=== PATIENT | male | born 1975 | race Caucasian/White ===

== ENCOUNTER 2018-05-17 01:21 | Observation (INO) ==
[2018-05-17] MEDS ORDERED: 0.9 % Sodium Chloride 500 ML IVC ONE (01:30)
[2018-05-17] MEDS ORDERED: Aspirin 81 MG TAB.CHEW PO ONE (01:30)
[2018-05-17] MEDS ORDERED: Nitroglycerin 0.4 MG TAB.SUBL SL ONE (01:30)
--- NOTE | 2018-05-17 01:36 | Emergency Department Note ---
Disposition Clinical Impression: Chest pain Qualifiers: Chest pain type: unspecified Qualified Code(s): R07.9 - Chest pain, unspecified Hypertension Qualifiers: Hypertension type: essential hypertension Qualified Code(s): I10 - Essential ( primary) hypertension Disposition: Admitted As Inpatient Condition: Good Time of Disposition: 02:54 Chest Pain HPI - General Chief Complaint: ED Chest Pain Stated Complaint: chest pain Time Seen by Provider: 05/17/18 01:30 Source: family Mode of arrival: ambulatory Limitations: no limitations Vital Signs Reviewed: Yes Nursing Notes Reviewed: Yes - History of Present Illness HPI Narrative: 43-year-old male with a history of hypertension persists for evaluation of chest pain. Patient states he felt anterior chest pain which is nonexertional around 11:00 last night. Notes the pain has had intermittent episodes in his back. States that the pain has improved since arrival to the ED. Patient denies any vomiting. Patient did state that he had cold sweats. Denies any fevers or cough. No dyspnea. Denies any radiation symptoms his arms. Denies any history of heart attacks. Patient states that he does have a history of reflux however typically resolves with Zantac. Severity scale (1-10): 2 - Related Data Allergies Allergy/AdvReac Type Severity Reaction Status Date / Time No Known Allergies Allergy Verified 05/17/18 01:31 All systems ED: reviewed and negative except as stated. Constitutional: Denies: fever Cardiovascular: Reports: chest pain. Denies: palpitations Respiratory: Denies: cough, dyspnea Gastrointestinal: Denies: abdominal pain, nausea, vomiting Chest Pain PMH - Past Medical History Medical history: Reports: no medical history Psychiatric history: Reports: anxiety - Social History Smoking Status: Never smoker Alcohol use: Reports: none Drug use: Reports: none Physical Exam - General Limitations: no limitations General appearance: alert, in no apparent distress - Head Head exam: atraumatic, normocephalic, normal inspection - Eye Eye exam: Present: normal appearance, PERRL, EOMI - ENT ENT exam: normal exam, mucous membranes moist - Neck Neck exam: Present: normal inspection, trachea midline - Chest Chest inspection: Present: normal inspection, symmetric chest wall rise - Respiratory Respiratory exam: Present: normal lung sounds bilaterally. Absent: respiratory distress - Cardiovascular Cardiovascular exam: Present: regular rate, normal rhythm - Abdominal Exam Abdominal exam: Present: soft, Non-Tender - Extremities Exam Extremities exam: Present: normal inspection. Absent: pedal edema - Back Exam Back exam: Present: normal inspection - Neurological Exam Neurological exam: Present: alert, CN II-XII intact - Skin Skin exam: Present: warm, dry, intact, normal color Course Course Narrative: Patient will get basic cardiopulmonary screening evaluation. Aspirin, nitroglycerin, chest x-ray. Disposition likely admission given the patient's concerning history with no history of ACS in the past. - Reevaluation(s) Reevaluation #1: Patient's resting comfortably. Patient's pain has resolved. Patient states that the did not require any nitroglycerin. Patient's been resting comfortably. Stable vitals. Time: 02:25 Reevaluation #2: Patient seen and examined. Patient's resting comfortably. Time: 02:35 Vital Signs Temperature 97.6 F 05/17/18 01:27 Pulse Rate 93 05/17/18 01:27 Respiratory Rate 20 05/17/18 01:27 Blood Pressure 160/103 05/17/18 01:27 O2 Sat by Pulse Oximetry 96 05/17/18 01:27 Temperature 97.6 F 05/17/18 01:27 Pulse Rate 83 05/17/18 02:52 Respiratory Rate 22 05/17/18 02:52 Blood Pressure 129/95 05/17/18 02:52 O2 Sat by Pulse Oximetry 97 05/17/18 02:52 Oxygen Delivery Oxygen Delivery Room Air Chest Pain - MDM Narrative Medical decision making narrative: Patient presents for complaints of chest pain. Patient chest pain was moderately suspicious for ACS. Patient's pain resolved prior to administration of nitroglycerin. There is to be anterior pressure thought it was related to his reflux however did not resolve after Zantac. Patient does have risk factors for ACS. Patient also had cold sweats and diaphoresis. Patient has low suspicion or concern of a time pulmonary embolism. Patient's pulmonary embolism rock criteria negative. Patient symptoms and clinical exam and are consistent with aortic dissection. Patient has a negative troponin however given the onset of symptoms patient will likely need further evaluation to rule out ACS. - Lab Data Lab results reviewed: Yes I reviewed the patient's lab results. Result diagrams: 05/17/18 01:30 05/17/18 01:30 Lab Results 05/17/18 05/17/18 05/17/18 Range/Units 01:30 01:30 01:30 WBC (4.3-11.1) K/mcL RBC (4.19-5.50) M/mcL Hgb (12.9-16.9) g/dL Hct (37.5-50.1) % MCV (83.0-100.0) fL MCH (28.0-33.3) pg MCHC (31.6-35.5) g/dL RDW (11.5-14.5) % Plt Count (140-400) K/mcL MPV (9.4-12.4) fL Immature Gran % (0-4) % Seg Neutrophils % % Lymphocytes % % Monocytes % % Eosinophils % % Basophils % % Neutrophils # (1.6-8.9) K/mcL Lymphocytes # (0.6-4.6) K/mcL Monocytes # (0.0-1.3) K/mcL Eosinophils # (0.0-0.6) K/mcL Basophils # (0.0-0.2) K/mcL PT 11.6 (9.4-12.1) Seconds INR 1.0 APTT 28.8 (26.0-36.0) Seconds Sodium (136-145) mEq/L Potassium (3.5-5.1) mEq/L Chloride (98-107) mEq/L Carbon Dioxide (23-29) mEq/L BUN (6-20) mg/dL Creatinine (0.70-1.30) mg/dL Est GFR ( Amer) (> 60) Est GFR (Non-Af Amer) (> 60) BUN/Creatinine Ratio (6-26) Glucose (70-105) mg/dL Calculated Osmolality (280-300) Calcium (8.6-10.3) mg/dL Troponin I (< 0.04) ng/mL B-Natriuretic Peptide 19 (Less than 100) pg/mL Lipase 50 (11-82) Units/L 05/17/18 05/17/18 Range/Units 01:30 01:30 WBC 9.1 (4.3-11.1) K/mcL RBC 5.43 (4.19-5.50) M/mcL Hgb 16.3 (12.9-16.9) g/dL Hct 47.7 (37.5-50.1) % MCV 87.8 (83.0-100.0) fL MCH 30.0 (28.0-33.3) pg MCHC 34.2 (31.6-35.5) g/dL RDW 12.7 (11.5-14.5) % Plt Count 317 (140-400) K/mcL MPV 9.0 L (9.4-12.4) fL Immature Gran % 0.8 (0-4) % Seg Neutrophils % 48.2 % Lymphocytes % 39.9 % Monocytes % 8.5 % Eosinophils % 2.2 % Basophils % 0.4 % Neutrophils # 4.4 (1.6-8.9) K/mcL Lymphocytes # 3.6 (0.6-4.6) K/mcL Monocytes # 0.8 (0.0-1.3) K/mcL Eosinophils # 0.2 (0.0-0.6) K/mcL Basophils # 0.0 (0.0-0.2) K/mcL PT (9.4-12.1) Seconds INR APTT (26.0-36.0) Seconds Sodium 137 (136-145) mEq/L Potassium 3.4 L (3.5-5.1) mEq/L Chloride 102 (98-107) mEq/L Carbon Dioxide 27 (23-29) mEq/L BUN 14 (6-20) mg/dL Creatinine 1.18 (0.70-1.30) mg/dL Est GFR ( Amer) > 60 (> 60) Est GFR (Non-Af Amer) > 60 (> 60) BUN/Creatinine Ratio 12 (6-26) Glucose 117 H (70-105) mg/dL Calculated Osmolality 286 (280-300) Calcium 9.8 (8.6-10.3) mg/dL Troponin I < 0.03 (< 0.04) ng/mL B-Natriuretic Peptide (Less than 100) pg/mL Lipase (11-82) Units/L - EKG Data EKG attestation: Yes I reviewed and interpreted this EKG. EKG shows normal: sinus rhythm Rate: normal Rhythm: NSR Vivian/QRS: normal Heart block present: 1st Degree Interpretation: no acute changes, nonspecific ST-T wave changes Heart Score - Score History: Moderately Suspicious EKG: Non Specific repolarisation Disturbance Age: Less than 45 Risk Factors: 1-2 risk factors Troponin: Less than normal limit HEART Score Total: 3 [email or web address] - Cristal Situation: Demographics Background: Presenting Complaint Assessment: Vital Signs, Course and respsone to treatment, Patient/Family Expectation Recommendation: Barrier(s) to disposition, Recommendation based on pending studies, treatments, or consults STrevor Report Given to: Dr. Gina Bee Repor Time: 02:54 Attestation Statement - Attestation Attestation: I examined this patient and my medical decision-making was reviewed with the Resident Physician. I agree with the documented findings, disposition and treatment plan as described except to the extent set forth below. Heart score is greater than 3, aspirin, no chest pain at this time. Plan to admit for serial cardiac biomarkers as well as possible cardiac consultation.
[2018-05-17 01:50] LABS: Basophils % 0.4 %; Eosinophils # 0.2 K/mcL (0.0-0.6); Eosinophils % 2.2 %; Hematocrit 47.7 % (37.5-50.1); Hemoglobin 16.3 g/dL (12.9-16.9); Immature Granulocytes % 0.8 % (0-4); Lymphocytes # 3.6 K/mcL (0.6-4.6); Lymphocytes % 39.9 %; Mean Corpuscular HGB Conc 34.2 g/dL (31.6-35.5); Mean Corpuscular Volume 87.8 fL (83.0-100.0); Monocytes # 0.8 K/mcL (0.0-1.3); Monocytes % 8.5 %; Neutrophils # 4.4 K/mcL (1.6-8.9); Platelet Count 317 K/mcL (140-400); Red Blood Count 5.43 M/mcL (4.19-5.50); Red Cell Distribution Width 12.7 % (11.5-14.5); Segmented Neutrophils % 48.2 %
[2018-05-17 01:58] LABS: Prothrombin Time 11.6 Seconds (9.4-12.1)
[2018-05-17 02:01] LABS: Activated Partial Thrombo Time 28.8 Seconds (26.0-36.0)
[2018-05-17 02:14] LABS: BUN/Creatinine Ratio 12 (6-26); Blood Urea Nitrogen 14 mg/dL (6-20); Calcium 9.8 mg/dL (8.6-10.3); Carbon Dioxide 27 mEq/L (23-29); Chloride 102 mEq/L (98-107); Glucose 117 mg/dL (70-105); Osmolality,Calculated 286 (280-300); Potassium 3.4 mEq/L (3.5-5.1); Sodium 137 mEq/L (136-145); Troponin I < 0.03 ng/mL (< 0.04); eGFR For Non-African Americans > 60 (> 60)
--- NOTE | 2018-05-17 03:19 | Internal Med History&Physical ---
Date of Encounter: 05/17/18 Time of Encounter: 03:19 Internal Medicine - H&P: HPI Chief complaint: CP Admitted From: Home History of present illness: Mr. Hill is a 43 year old male with a PMH of HTN, HLD, GERD, and anxiety who presents to the ED from home c/o intermittent non-exertional anterior chest pain radiating to his back for about 45 minutes last PM. The pain was described as a sharp burning sensation that "felt like indigestion" and made it hard for him to stand. Patient reports associated diaphoresis and acid reflux that did not improve after taking Zantac at home. The pain resolved spontaneously prior to ASA administration in the ED. Pain severity was 8/10 and is now 0/10. Patient states that the did not require any nitroglycerin. He reports one similar episode of chest pain at rest that resolved without treatment about 5 months ago. He denies fever, chills, palpitations, SOB, N/V/D, constipation, dysuria, leg edema, rash, or recent illness. He reports his father has CAD and received cardiac stents at the age of 60. 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 - Constitutional Constitutional: no anorexia, no chills, no fatigue, no fever(s), no lethargy, no weakness, no weight gain, no weight loss - EENT Eyes: no blurry vision, no diplopia Nose, mouth and throat: no sinus pain, no sore throat - Cardiovascular Cardiovascular ROS IM: chest pain, diaphoresis, no dyspnea, no dyspnea on exertion, no edema, no irregular heart rhythm, no lightheadedness, no orthopnea , no palpitations, no paroxysmal nocturnal dyspnea, no syncope - Respiratory Respiratory: no cough, no dyspnea on exertion, no wheezing, no chest congestion - Gastrointestinal Gastrointestinal: heartburn, no abdominal pain, no constipation, no diarrhea, no nausea, no vomiting - Genitourinary Genitourinary ROS male: no dysuria, no urinary frequency, no urinary urgency - Musculoskeletal Musculoskeletal ROS IM: back pain, no arthralgias, no limited range of motion, no numbness, no tingling - Integumentary Integumentary IM: no erythema, no rash, no skin ulcer - Neurological Neurological ROS: no abnormal gait, no confusion, no dizziness, no headache(s), no numbness, no tremor(s), no weakness - Psychiatric Psychiatric: anxiety, no depression - Endocrine Endocrine IM: no fatigue, no polydipsia, no polyphagia, no polyuria - Hematologic/Lymphatic Hematologic/Lymphatic: no easy bleeding, no easy bruising - Constitutional Vitals: Temp Pulse Resp BP Pulse Ox 97.6 F 83 22 129/95 97 05/17/18 01:27 05/17/18 02:52 05/17/18 02:52 05/17/18 02:52 05/17/18 02:52 General appearance: Present: cooperative, A&O X 3, pleasant, no acute distress, answers questions appropriately - Head Head exam: Present: atraumatic, normocephalic - Eye Eye exam: Present: EOMI, conjuntiva pink, sclera anicteric - ENT ENT exam: Present: mucous membranes moist, normal oropharynx - Neck Neck exam general surgery: Present: full ROM, lymphadenopathy, normal inspection , supple, trachea midline - Respiratory Respiratory exam: Present: CTAB. Absent: accessory muscle use, rales, rhonchi, wheezes - Cardiovascular Cardiovascular exam: Present: RRR, +S1, +S2. Absent: diastolic murmur, gallop, rubs, systolic murmur - GI/Abdominal GI/Abdominal exam: Present: normal bowel sounds, soft, no peritoneal signs. Absent: distended, guarding, tenderness - Extremities Exam Extremities exam: Present: normal capillary refill, normal inspection, warm, radial pulses palpable and symmetrical. Absent: calf tenderness, cyanotic, pedal edema - Back Exam Back exam: Present: normal inspection. Absent: paraspinal tenderness, tenderness - Neurological Exam Neurological exam: Present: CN II-XII intact, oriented X3, no focal deficits. Absent: pronater drift, facial droop, speech deficit - Psychiatric Psychiatric exam: Present: anxious, normal affect - Skin Skin exam: Present: dry, intact, normal color, warm Internal Med - H&P Results - Labs CBC & Chem 7: 05/17/18 01:30 05/17/18 01:30 - Pulse Oximetry Interpretation Digit-Finger O2 Sat by Pulse Oximetry: 97 (On room air) - EKG Data -: EKG Interpreted by Myself EKG shows normal: sinus rhythm (HR 78, WI interval 215 ms, 1st Degree AV block, nonspecific ST-T wave changes), axis, QRS complexes - EKG Data Prior EKG available for review: no - Impressions ITS Impressions Chest X-Ray 05/17/18 01:30 IMPRESSION: Low lung volume examination. Streaky opacities at the bases probably represent atelectasis. Otherwise no definite acute process. D/ / Phu Red MD / Phu Red MD Interpreting Provider: Phu Red MD - Assessment and plan (1) Chest pain, rule out acute myocardial infarction Current Visit: Yes Status: Acute Assessment and plan: Patient with HTN, HLD, and family h/o CAD presents c/o substernal CP at rest radiating to his back at rest. CXR revealed low lung volume examination with streaky opacities at the bases probably represent atelectasis. Otherwise no definite acute process. EKG shows 1st degree AV block, non-specific ST-T wave abnormalities Patient was given NTG in the ED Continue NTG prn CP Aspirin 325mg PO given in ED, continue ASA 81mg PO daily Lipid panel pending, start high intensity statin NPO after midnight Continue telemetry monitoring EDUARDA Risk Score is 1 (3 CAD risk factors: Hypertension, hypercholesterolemia, family history of CAD) HEART Score is 4 (moderately suspicious history, non-specific repolarization disturbance, > 3 CAD risk factors: Hypertension, hypercholesterolemia, family history of CAD) Initial troponin < 0.03. Trend serial troponins, if negative, will proceed with exercise stress test in AM Consider cardiology consult if stress test indicates signs of ischemia (2) Hypertension Current Visit: Yes Status: Acute Assessment and plan: Consider adding beta oscar s/p stress test Qualifiers: Hypertension type: essential hypertension Qualified Code(s): I10 - Essential (primary) hypertension (3) HLD (hyperlipidemia) Current Visit: No Status: Chronic Assessment and plan: Lipid panel pending, start high intensity statin Qualifiers: Hyperlipidemia type: unspecified Qualified Code(s): E78.5 - Hyperlipidemia , unspecified (4) GERD (gastroesophageal reflux disease) Current Visit: Yes Status: Chronic Assessment and plan: Patient takes Zantac at home Continue PPI Qualifiers: Esophagitis presence: esophagitis presence not specified Qualified Code(s) : K21.9 - Gastro-esophageal reflux disease without esophagitis (5) Hypokalemia Current Visit: Yes Status: Acute Assessment and plan: Supplemented K Mag level pending Continue monitoring (6) Anxiety Current Visit: Yes Status: Chronic Assessment and plan: TSH level pending Continue home meds: Buspirone (7) DVT prophylaxis Current Visit: Yes Status: Acute Assessment and plan: Heparin subQ TID - Time Spent With Patient Total time spent is greater than 50% in coordination of care (as documented) at patient's floor/unit and/or counseling patient:
[2018-05-17] MEDS ORDERED: Acetaminophen 325 MG TABLET PO PRN (03:29)
[2018-05-17] MEDS ORDERED: Naloxone 0.4 MG/ML INJ IVP PRN (03:29)
[2018-05-17] MEDS ORDERED: Ondansetron 4 MG/2 ML VIAL IVP PRN (03:29)
[2018-05-17] MEDS ORDERED: Nitroglycerin 0.4 MG TAB.SUBL SL PRN (03:29)
[2018-05-17 05:57] LABS: Chol/HDL Ratio 4.6 (0-4.9); Cholesterol 183 mg/dL (< 200); HDL Cholesterol 40 mg/dL (40-59); LDL Cholesterol,Calculated 88 mg/dL (0-99); Magnesium 2.1 mg/dL (1.6-2.6); Triglycerides 276 mg/dL (< 150)
[2018-05-17] MEDS ORDERED: *HR* Heparin 5,000 UNIT/ML VIAL SQ SCH (06:00)
[2018-05-17 06:10] LABS: Thyroid Stimulating Hormone 1.535 mcIU/mL (0.340-5.600)
[2018-05-17] MEDS ORDERED: Pantoprazole 40 MG VIAL IVP SCH (06:30)
[2018-05-17] MEDS ORDERED: Aspirin 81 MG TAB.CHEW PO SCH (09:00)
--- NOTE | 2018-05-17 11:48 | Discharge Summary ---
- NOTES TO OUTPATIENT PROVIDER Notes to Outpatient Provider: f/u with PCP within 1-2 weeks. Date of Encounter: 05/17/18 Time of Encounter: 11:46 - Discharge Diagnosis (1) Hypertension Priority: Secondary Status: Acute Qualifiers: Hypertension type: essential hypertension Qualified Code(s): I10 - Essential (primary) hypertension (2) Chest pain, rule out acute myocardial infarction Priority: Primary Status: Acute (3) DVT prophylaxis Priority: Primary Status: Acute (4) Hypokalemia Priority: Primary Status: Acute (5) GERD (gastroesophageal reflux disease) Priority: Secondary Status: Chronic Qualifiers: Esophagitis presence: esophagitis presence not specified Qualified Code(s) : K21.9 - Gastro-esophageal reflux disease without esophagitis (6) HLD (hyperlipidemia) Priority: Secondary Status: Chronic Qualifiers: Hyperlipidemia type: unspecified Qualified Code(s): E78.5 - Hyperlipidemia , unspecified (7) Anxiety Priority: Secondary Status: Chronic Hospital course: Mr. Hill is a 43 year old male with a PMH of HTN, HLD, GERD, and anxiety who presents to the ED from home c/o intermittent non-exertional anterior chest pain radiating to his back for about 45 minutes last PM. The pain was described as a sharp burning sensation that "felt like indigestion" and made it hard for him to stand. Patient reports associated diaphoresis and acid reflux that did not improve after taking Zantac at home. The pain resolved spontaneously prior to ASA administration in the ED. Pain severity was 8/10 and is now 0/10. Patient states that the did not require any nitroglycerin. He reports one similar episode of chest pain at rest that resolved without treatment about 5 months ago. He denies fever, chills, palpitations, SOB, N/V/D, constipation, dysuria, leg edema, rash, or recent illness. He reports his father has CAD and received cardiac stents at the age of 60. Patient was admitted as observation. Troponin was cycled and was negative 3. He underwent a stress test which was negative for ischemia. Therefore ACS is less likely. Patient will be discharged home today and follow-up with PCP within 1-2 weeks. Discharge discussed with: patient Time spent discussing smoking cessation with patient: 3 to 10 minutes - Time Spent with Patient Total time spent providing and/or coordinating discharge services: Less than 30 minutes - Discharge Medications Home Medications: ALPRAZolam [Xanax 1 MG Tablet] 2 mg PO TID 05/17/18 [History] Diphenoxylate/Atropine [Lomotil 2.5 mg/0.025 mg] 1 tab PO QID PRN 05/17/18 [ History] Imipramine HCl [Tofranil] 50 mg PO QAM 05/17/18 [History] Imipramine HCl [Tofranil] 150 mg PO HS 05/17/18 [History] Allergies/Adverse Reactions: 3 Allergy/AdvReac Type Severity Reaction Status Date / Time No Known Allergies Allergy Verified 05/17/18 01:31 Date of admission: 05/17/18 03:02 Primary care physician: Geo Moore Anticipated date of discharge: 05/17/18 - Constitutional Vitals: Temp Pulse Resp BP Pulse Ox 97.8 F 89 17 131/86 97 05/17/18 11:17 05/17/18 11:17 05/17/18 11:17 05/17/18 11:17 05/17/18 11:17 General appearance: Present: cooperative, A&O X 3, pleasant, no acute distress, answers questions appropriately Exam: PHYSICAL EXAMINATION: GENERAL APPEARANCE: The patient is alert, oriented and in no acute distress. HEENT: Head is normocephalic. The sinuses are nontender. Pupils are equal and reactive. The nares are patent. Oropharynx clear without lesions. NECK: Supple without lymphadenopathy. HEART: Regular rate and rhythm. LUNGS: No crackles or wheezes are heard. ABDOMEN: Soft, nontender, nondistended with good bowel sounds heard. Inguinal area is normal. EXTREMITIES: Without cyanosis, clubbing or edema. NEUROLOGICAL: Gross nonfocal. SKIN: Warm and dry without any rash. - Patient Status Disposition: Home, Self-Care Condition: Good Functional capacity at discharge: independent ambulation Overall status at discharge: patient is back to baseline - Discharge Instructions Follow Up With: Geo Moore DO [Primary Care Provider] - 05/26/18 10:30 am (This appointment will be with Leslee Lovett CNP. ) - Diet and Activity Activity: increase activity as tolerated Diet: advance to your usual diet
[2018-05-17] MEDS ORDERED: *HR* Metoprolol 5 MG/5 ML VIAL IVP ONE (12:20)
[2018-05-17 15:26] VITALS: BP 131/86
--- NOTE | 2018-05-17 17:11 | Electrocardiograph Report ---
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
== END 2018-05-17 12:21 | disposition home or self-care (01) ==
LOC: EMEROO 01:21 → 3BNU 01:21
PROVIDERS: ADMIT Family Medicine; ATTEND Family Medicine

== ENCOUNTER 2019-12-17 23:46 | Observation (INO) ==
[2019-12-18] MEDS ORDERED: *HR* LORazepam 2 MG/ML VIAL IVP ONE (00:26)
[2019-12-18] MEDS ORDERED: GI Cocktail 40 ML EACH PO ONE (00:26)
[2019-12-18 00:56] LABS: Prothrombin Time 11.7 Seconds (9.4-12.1)
[2019-12-18 00:59] LABS: Activated Partial Thrombo Time 28.3 Seconds (26.0-36.0)
[2019-12-18 01:00] LABS: Basophils # 0.1 K/mcL (0.0-0.2); Basophils % 0.6 %; Eosinophils # 0.2 K/mcL (0.0-0.6); Eosinophils % 1.3 %; Hematocrit 43.5 % (37.5-50.1); Hemoglobin 14.9 g/dL (12.9-16.9); Immature Granulocytes % 0.4 % (0-4); Lymphocytes # 2.5 K/mcL (0.6-4.6); Lymphocytes % 22.2 %; Mean Corpuscular HGB Conc 34.3 g/dL (31.6-35.5); Mean Corpuscular Hemoglobin 29.4 pg (28.0-33.3); Monocytes # 0.8 K/mcL (0.0-1.3); Monocytes % 6.8 %; Neutrophils # 7.8 K/mcL (1.6-8.9); Platelet Count 336 K/mcL (140-400); Red Blood Count 5.06 M/mcL (4.19-5.50); Red Cell Distribution Width 12.8 % (11.5-14.5); Segmented Neutrophils % 68.7 %; White Blood Count 11.4 K/mcL (4.3-11.1)
[2019-12-18 01:10] LABS: Albumin 4.4 g/dL (3.5-5.7); Albumin/Globulin Ratio 1.6 (1.1-2.2); Bilirubin,Direct 0.1 mg/dL (0.0-0.2); Bilirubin,Indirect 0.3 mg/dL (0.0-1.0); Bilirubin,Total 0.4 mg/dL (0.3-1.0); Globulin 2.7 g/dL (2.4-3.5); Total Protein 7.1 g/dL (6.4-8.9)
[2019-12-18 01:11] LABS: BUN/Creatinine Ratio 10 (6-26); Blood Urea Nitrogen 12 mg/dL (6-20); Calcium 9.7 mg/dL (8.6-10.3); Carbon Dioxide 20 mEq/L (23-29); Chloride 103 mEq/L (98-107); Glucose 151 mg/dL (70-105); Osmolality,Calculated 285 (280-300); Potassium 3.1 mEq/L (3.5-5.1); Sodium 136 mEq/L (136-145); eGFR For African Americans > 60 (> 60); eGFR For Non-African Americans > 60 (> 60)
[2019-12-18 01:12] LABS: Troponin I < 0.03 ng/mL (< 0.04)
[2019-12-18] MEDS ORDERED: Isovue-370 500 ML BOTTLE IVP ONE (01:20)
[2019-12-18] MEDS ORDERED: *HR* FentaNYL (PF) 100 MCG/2 ML VIAL IVP STA (03:24)
[2019-12-18] MEDS ORDERED: Piperacillin/Tazobactam 3.375 GM in 0.9 % Sodium Chloride Mini Bag 100 ML IVPB ONE (03:31)
[2019-12-18] MEDS ORDERED: 0.9 % Sodium Chloride 1,000 ML IVC SCH (03:45)
[2019-12-18] MEDS ORDERED: Ondansetron ODT 4 MG TAB.RAPDIS SL PRN (05:54)
[2019-12-18] MEDS ORDERED: Lidocaine HCL 4 ML Topical Solution (Laryng-O-Jet Kit Sterile Pak) TP ONE (09:49)
[2019-12-18] MEDS ORDERED: *HR* FentaNYL (PF) 100 MCG/2 ML VIAL ONE ×2 (09:52→12:09)
[2019-12-18] MEDS ORDERED: *HR* Rocuronium Bromide 50 MG/5 ML VIAL ONE (09:52)
[2019-12-18] MEDS ORDERED: Ondansetron 4 MG/2 ML VIAL ONE (09:52)
[2019-12-18] MEDS ORDERED: Lidocaine -MPF 2% 2 ML VIAL ONE (09:52)
[2019-12-18] MEDS ORDERED: Dexamethasone 4 MG/ML VIAL ONE (09:52)
[2019-12-18] MEDS ORDERED: *HR* Propofol 200 MG/20 ML VIAL IVP ONE (09:53)
[2019-12-18] MEDS ORDERED: *HR* Midazolam HCl 2 MG/2 ML VIAL ONE (09:53)
[2019-12-18] MEDS ORDERED: Ondansetron 4 MG/2 ML VIAL IVP ONE (10:50)
[2019-12-18] MEDS ORDERED: *HR* Promethazine 25 MG/ML VIAL IVP PRN (10:50)
[2019-12-18] MEDS ORDERED: *HR* HYDROmorphone PF 0.5 MG/0.5 ML SYRINGE IVP PRN (10:50)
[2019-12-18] MEDS ORDERED: *HR* OxyCODONE Immed Rel 5 MG TABLET PO PRN (10:50)
[2019-12-18] MEDS ORDERED: Lidocaine -MPF 4% 5 ML AMPUL ONE (10:54)
[2019-12-18] MEDS ORDERED: Acetaminophen IV 1,000 MG/100 ML INFUS..BTL ONE (11:09)
[2019-12-18] MEDS ORDERED: Lacri-Lube 3.5 GM TUBE ONE (11:39)
[2019-12-18] MEDS ORDERED: Neostigmine Methylsulfate 3 MG/3 ML SYRINGE ONE (12:07)
[2019-12-18] MEDS ORDERED: ALPRAZolam 1 MG TABLET PO SCH (16:36)
[2019-12-18 18:07] VITALS: BP 153/98
== END 2019-12-18 19:00 | disposition home or self-care (01) ==
LOC: EMEROOARM 23:46 → 3ANU 23:46
PROVIDERS: ADMIT Surgery; ATTEND Surgery